=== PATIENT | male | born 1950 | race Caucasian/White ===

== ENCOUNTER → 2017-05-25 | Outpatient (CLI) | payer MEDICARE ==
[~2017-05-25] MED LIST: ACETAMINOPHEN PO; AMLODIPINE BESYL5 MG PO; ANEXSIA 7.5/3251 TA1 PO; ANTACID650 MG PO; BACTRIM DS TABL1 TA1 PO; BALANCED B11 S PO; COMBIVENT INH14.7 GM INH; CYMBALTA PO; DESYREL100 MG PO; DICLOFENAC PO; ESCITALOPRAM OX10 MG PO; FLEXERIL PO; FLOMAX0.4 M1 PO; FOLIC ACID1 MG PO; FUROSEMIDE80 MG PO; HYDROCHLOROTHIA25 MG PO; HYDROCODON-ACE1 EAC7 PO; LASIX80 MG PO; LEVAQUIN PO; LEXAPRO; LORAZEPAM1 MG PO; LYRICA25 MG PO; METOLAZONE2.5 MG PO; METOPROLOL TAR25 MG PO; MYSOLINE50 M1 PO; NEURONTIN300 MG PO; NEURONTIN600 MG; NO MEDICATIONS; NORVASC10 MG; PERCOCET 10/3251 TAB PO; PHENERGAN25 MG PO; PREDNISONE PO; PROBIOTIC1 EAC5 PO; PROTONIX PO; RANITIDINE; RENAL SOFTGEL1 MG PO; ROBAXIN PO; ROBITUSSIN A-C-S1 ML PO; ZITHROMAX PO; [UNRECOGNIZED DRUG - OTHER] PO
--- NOTE | ~2017-05-25 | CT2 ---
[facility] A Service of [facility] & [facility] RADIOLOGY TEXT RESULTS PATIENT: JUAN MANUEL FERGUSON LOCATION: [facility] : 52 UNIT #: [id number] AGE: [address]: Silverio Magana MD SEX: M ORDER DR: [id number] [address] [address] [id number] O MR#: [id number] Acc #: [id number] NAME: JUAN MANUEL FERGUSON : 1950 SEX: M STUDY DATE/TIME: 05/25/2017 11:31 UNIT: [facility] ROOM: STUDY DESCRIPTION: CT Abd and Pelv W Cont Attending Physician: Silverio Magana M.D. Referring Physician: Silverio Magana M.D. Ordering Physician: Silverio Magana M.D. Primary Care Physician: Erickson Olivera M.D. MEDICAL IMAGING REPORT This report is preliminary unless electronic signature is present. EXAM CT abdomen and pelvis with contrast INDICATION Lower abdominal pain. Since a port removal in the lower abdomen 10 weeks ago. PROCEDURE Contrast-enhanced CT of the abdomen and pelvis. This CT exam was performed with one or more of the following radiation dose reduction techniques: Automatic exposure control, adjustment of mA and/or kV according to patient size, and iterative reconstruction. COMPARISON 04/03/2017 FINDINGS Patchy linear opacities in both lung bases probably atelectasis, infiltrate not excluded. Small to moderate bilateral pleural effusions are increased from the prior. Bilateral gynecomastia. Mildly prominent cardiophrenic nodes not significantly changed. No liver or splenic lesion. A 3.2 cm left renal cyst. Probable multiple other tiny cysts in both kidneys. Adrenal glands and pancreas unremarkable. Previous cholecystectomy. Bowel loops are nondilated. Appendix is normal. There is a loculated rim-enhancing collection in the anterior mid-abdomen. It measures approximately 33 cm in transverse dimension and measures up to 7 cm in thickness. It is similar to 04/03/2017. There is scattered more simple-appearing fluid around the stomach and undersurface of the left lobe of the liver. PELVIS WITH CONTRAST: No pelvic mass or fluid. No aggressive appearing bone lesion. [facility] A Service of [facility] & [facility] RADIOLOGY TEXT RESULTS PATIENT: JUAN MANUEL FERGUSON LOCATION: [facility] : 52 UNIT #: [id number] AGE: [address]: Silverio Magana MD SEX: M ORDER DR: IMPRESSION AND PLAN 1. There is a large rim-enhancing collection in the anterior mid-abdomen detailed above. Similar in appearance to 04/03/2017. 2. The rim enhancement is suspicious for an abscess. Loculated complex ascites could have a similar appearance. 3. More simple-appearing fluid around the stomach and undersurface of the liver as well as moderate bilateral pleural effusions. Dictated by... Charly Rodgers M.D. THIS IS AN ELECTRONICALLY VERIFIED REPORT Charly Rodgers M.D. at 05/26/2017 3:28 PM JORGE LUIS/cory TD: 05/25/2017 14:35 JOB #: [id number] MEDICAL IMAGING REPORT Page 1 of 1
[2017-05-25 10:15] LABS: POC - CREATININE 5.35 mg/dL (0.64-1.27)
== END | disposition home or self-care (01) ==
LOC: SCT 09:56
PROVIDERS: Internal Medicine Nephrology
DX: R10.9 Unspecified abdominal pain (principal); R18.8 Other ascites; J90 Pleural effusion, not elsewhere classified
CPT/HCPCS: 74177; 82565; Q9967